=== PATIENT | female | born 2000 | race African-American/Black ===

== ENCOUNTER 2019-01-15 18:42 | Inpatient (IN) | payer MEDICAID ==
[~2019-01-15] VITALS: Ht 154.9 cm; Wt 97.0 kg
--- NOTE | 2019-01-15 19:01 | NUR ---
Patient ambulated into room by herself. Appears well nourished. Patient has a hoarse voice when answering questions but provides clear and concise answers. Attached to monitor, vital signs stable. No signs or symptoms of respiratory distress, no accessory muscle use, no tachypnea, no coarse breath sounds. Patient on phone with parents. Awaiting assessment and orders from physician.
--- NOTE | 2019-01-15 19:41 | NUR ---
RN to bedside, patient chest xray completed, awaiting evaluation by radiologist. Addendum: 01/15/19 at 1941 by TEMI Patient resting comfortably, vital signs stable (see vital signs flowsheet)
[2019-01-15] MEDS ORDERED: CEFTRIAXONE PMX 1GM/50ML 50 ML IVPB ONE (20:00)
[2019-01-15] MEDS ORDERED: AZITHROMYCIN 500 MG in SODIUM CHLORIDE 0.9% 250 ML IV ONE (20:00)
[2019-01-15] MEDS ORDERED: SODIUM CHLORIDE 0.9% 1,000ML IVBOLUS ONE (20:00)
--- NOTE | 2019-01-15 20:19 | NUR ---
RN to bedside, patient informed of need for IV antibiotics given her possible immune deficiency. [employer]ary [employer] at bedside, dahlia blood cultures and blood samples. RN started IV per protocol (see flowsheet) and dahlia second set of blood cultures. Patient detached from monitor, and ambulated self to bathroom. Will return with IV antibiotics and fluid bolus.
[2019-01-15] MEDS ORDERED: CEFTRIAXONE PMX 1GM/50ML 50 ML ONE (20:24)
[2019-01-15 20:33] LABS: ALBUMIN 3.6 g/dL (3.4-5.0); ANION GAP 7 mmol/L (5-15); BASOPHILS # (AUTO) 0.06 x10^3/uL (0-0.3); BASOPHILS % (AUTO) 0 % (0-1); CALCIUM 9.4 mg/dL (8.5-10.1); CHLORIDE 106 mmol/L (98-107); CREATININE 0.61 mg/dL (0.55-1.02); EOSINOPHILS # (AUTO) 0.13 x10^3/uL (0-0.8); EOSINOPHILS % (AUTO) 1 % (1-7); LYMPHOCYTES # (AUTO) 2.26 x10^3/uL (1-6.1); LYMPHOCYTES % (AUTO) 17 % (22-44); MD NO; MEAN CORPUSCULAR HEMOGLOBIN 29.2 pg (27.0-34.8); MEAN CORPUSCULAR HGB CONC 32.7 g/dL (32.4-35.8); MEAN CORPUSCULAR VOLUME 89.5 fL (80-100); MEAN PLATELET VOLUME 8.2 fL (7.4-10.4); MONOCYTES # (AUTO) 1.11 x10^3/uL (0-1.4); MONOCYTES % (AUTO) 8 % (2-9); NEUTROPHILS # (AUTO) 9.97 x10^3/uL (1.8-8.0); NEUTROPHILS % (AUTO) 74 % (42-75); PLATELET COUNT 445 x10^3/uL (130-400); RED BLOOD COUNT 4.64 x10^6/uL (3.82-5.3); RED CELL DISTRIBUTION WIDTH 13.8 % (9.6-15.2)
[2019-01-15] MEDS ORDERED: CEFDINIR 300 MG CAPSULE ONE (20:43)
--- NOTE | 2019-01-15 20:59 | NUR ---
Second antibiotic started (see MAR) patient resting comfortably watching TV. IV abx will take approximately 1hr. Will recheck.
[2019-01-15] MEDS ORDERED: BICT1TAB PO (22:14)
[2019-01-15 22:22] VITALS: BP 135/96
[2019-01-15] MEDS ORDERED: GUAIFENESIN/DM 200-20MG, 10ML UDC PO PRN (23:00)
[2019-01-15] MEDS ORDERED: TEMAZEPAM 15 MG CAPSULE PO PRN (23:00)
[2019-01-15] MEDS ORDERED: DOCUSATE 100 MG CAPSULE PO PRN (23:00)
[2019-01-15] MEDS ORDERED: ACETAMINOPHEN 325 MG TABLET PO PRN (23:00)
[2019-01-15] MEDS ORDERED: ONDANSETRON ODT 4 MG PO PRN (23:00)
[2019-01-16 05:57] LABS: BASOPHILS # (AUTO) 0.07 x10^3/uL (0-0.3); BASOPHILS % (AUTO) 1 % (0-1); EOSINOPHILS # (AUTO) 0.17 x10^3/uL (0-0.8); EOSINOPHILS % (AUTO) 2 % (1-7); LYMPHOCYTES # (AUTO) 2.18 x10^3/uL (1-6.1); LYMPHOCYTES % (AUTO) 19 % (22-44); MD NO; MEAN CORPUSCULAR HEMOGLOBIN 29.4 pg (27.0-34.8); MEAN CORPUSCULAR HGB CONC 32.7 g/dL (32.4-35.8); MEAN PLATELET VOLUME 7.9 fL (7.4-10.4); MONOCYTES # (AUTO) 1.28 x10^3/uL (0-1.4); MONOCYTES % (AUTO) 11 % (2-9); NEUTROPHILS # (AUTO) 7.57 x10^3/uL (1.8-8.0); NEUTROPHILS % (AUTO) 67 % (42-75); PLATELET COUNT 444 x10^3/uL (130-400); RED BLOOD COUNT 4.43 x10^6/uL (3.82-5.3); RED CELL DISTRIBUTION WIDTH 13.6 % (9.6-15.2)
[2019-01-16 06:06] LABS: CALCIUM 9.3 mg/dL (8.5-10.1); CHLORIDE 109 mmol/L (98-107)
[2019-01-16 06:10] LABS: ANION GAP 6 mmol/L (5-15); CREATININE 0.72 mg/dL (0.55-1.02)
[2019-01-16 06:38] VITALS: BP 127/82
[2019-01-16] MEDS: CEFTRIAXONE PMX 1GM/50ML 50 ML IV SCH ×2 (08:50→20:26)
[2019-01-16] MEDS: BICTEGRAV/EMTRICIT/TENOFOV ALA TAB PO SCH (11:07)
[2019-01-16 11:57] VITALS: BP 131/84
[2019-01-16 12:00] VITALS: BP 131/84
[2019-01-16 19:10] VITALS: BP 115/74
[2019-01-16] MEDS ORDERED: AZITHROMYCIN 500 MG in SODIUM CHLORIDE 0.9% 250 ML IV SCH (20:30)
[2019-01-17 01:09] VITALS: BP 139/76
[2019-01-17 06:57] VITALS: BP 117/64
[2019-01-17] MEDS: CEFTRIAXONE PMX 1GM/50ML 50 ML IV SCH (08:44)
[2019-01-17] MEDS: BICTEGRAV/EMTRICIT/TENOFOV ALA TAB PO SCH (11:49)
[2019-01-17 12:44] VITALS: BP 118/80
[2019-01-17] MEDS ORDERED: CEFD300C37 PO (16:26)
[2019-01-17] MEDS ORDERED: AZIT500T PO (16:26)
== END 2019-01-17 18:01 | disposition home or self-care (01) | DRG 871 ==
LOC: ED 20:38 → EDIP 21:36 → 4WST 22:19
PROVIDERS: ADMIT Internal Medicine; ATTEND Internal Medicine
DX: A41.9 Sepsis, unspecified organism (principal); J15.9 Unspecified bacterial pneumonia; Z21 Asymptomatic human immunodeficiency virus [HIV] infection status; D89.9 Disorder involving the immune mechanism, unspecified; Z83.3 Family history of diabetes mellitus
CPT/HCPCS: 36415; 71046; 80048; 82040; 83605; 84145; 85025; 87040; 87081; 87880; 93005; 99285; G0378; J0456; J0696; J7030; J7050